=== PATIENT | female | born 1965 | race Caucasian/White ===

== ENCOUNTER 2018-05-28 11:35 | Emergency (ER) | payer OTHER, MEDICARE ==
[~2018-05-28] VITALS: Ht 175.3 cm; Wt 140.0 kg
[2018-05-28] MEDS ORDERED: Metformin HCl500 MG PO (12:56)
[2018-05-28] MEDS ORDERED: [UNRECOGNIZED DRUG - REMARK] PO (12:56)
[2018-05-28] MEDS ORDERED: [UNRECOGNIZED DRUG - REMARK] (12:58)
[2018-05-28] MEDS ORDERED: GLIP10 PO (12:58)
[2018-05-28] MEDS ORDERED: AMLO5 (12:59)
[2018-05-28] MEDS ORDERED: LOSA25 (12:59)
[2018-05-28] MEDS ORDERED: Cheratussin AC118 ML PO (14:24)
[2018-05-28] MEDS ORDERED: Zithromax250 MG PO (14:24)
[2018-05-28] MEDS ORDERED: ALBU90OI INH (14:24)
[2018-05-28] MEDS ORDERED: (None)20 M1 PO (14:24)
== END 2018-05-28 14:00 | disposition home or self-care (01) ==
LOC: ER 11:35
DX: R05 Cough (principal); Z88.0 Allergy status to penicillin; Z79.4 Long term (current) use of insulin; Z79.899 Other long term (current) drug therapy; E11.9 Type 2 diabetes mellitus without complications; I10 Essential (primary) hypertension; E03.9 Hypothyroidism, unspecified; J45.909 Unspecified asthma, uncomplicated; Z87.891 Personal history of nicotine dependence
CPT/HCPCS: 71046; 94640; 94644; 99283-25